=== PATIENT | female | born 1990 | race Caucasian/White ===

== ENCOUNTER → 2021-02-09 08:23 | Outpatient (CLI) | payer BC, SELFPAY ==
--- NOTE | ~2021-02-09 | XR_ITS ---
XR knee RT 3V 02/09/2021 08:40 INDICATION: Knee pain PROCEDURE: 3 views right knee COMPARISON: No prior studies for comparison. FINDINGS: Fracture, dislocation or subluxation is not identified. No significant joint effusion. The soft tissues appear within normal limits. No foreign bodies are identified. IMPRESSION: 1: NO ACUTE BONE OR JOINT ABNORMALITY IDENTIFIED. Reviewed, dictated and finalized at location A.
== END ==
PROVIDERS: PCP Internal Medicine; Visit Provider Internal Medicine
DX: M25.561 Pain in right knee (principal)
CPT/HCPCS: 73562

== ENCOUNTER → 2022-02-25 14:40 | Outpatient (CLI) | payer BC, SELFPAY ==
--- NOTE | ~2022-02-25 | MR_ITS ---
EXAMINATION: MR knee RT wo/w con DATE: 02/25/2022 15:28 INDICATION: Chronic worsening generalized right knee pain and swelling TECHNIQUE: Magnetic resonance imaging (MRI) of the right knee was performed without and with 14 mL Mu ltihance intravenous contrast. Sequences included coronal PD-weighted FSE, coronal PD-weighted FS FS E, sagittal T2-weighted FSE, sagittal PD-weighted FS FSE, axial PD weighted fat saturated FSE, axial T1-weighted fat-saturated FSE and postcontrast axial, sagittal and coronal T1-weighted FS FSE. COMPARISON: Right knee radiographs dated 02/09/2021 FINDINGS: Medial compartment: Medial meniscus is normal. Articular cartilage is normal. Lateral compartment: Lateral meniscus is normal. Articular cartilage is normal. Patellofemoral compartment: Articular cartilage is normal. Ligaments and tendons: Anterior and posterior cruciate ligaments are normal. The medial collateral ligament and fibular shania ateral ligament complex are normal. The extensor mechanism is normal. The visualized medial and later al hamstring tendons as well as the iliotibial band are normal. Fluid: Physiologic amount of fluid in the joint space. No loose osteochondral bodies identified. Osseous/other: Normal marrow signal. No fracture or pathologic marrow replacing process. No abnormally enhancing les ions identified. IMPRESSION: 1. Normal right knee MRI. No etiology identified for reported pain and swelling. Reviewed, dictated and finalized at location A. IMPRESSION: 1. Normal right knee MRI. No etiology identified for reported pain and swelling .
[2022-02-25 15:04] LABS: Estimated Glomerular Filt Rate > 60
== END ==
PROVIDERS: PCP Internal Medicine; Visit Provider Orthopaedic Surgery
DX: R22.40 Localized swelling, mass and lump, unspecified lower limb (principal); M25.561 Pain in right knee
CPT/HCPCS: 73723; A9577

== ENCOUNTER → 2023-10-17 15:37 | Outpatient (CLI) | payer OTHER, SELFPAY ==
--- NOTE | ~2023-10-17 | CT_ITS ---
EXAMINATION: CT sinus wo con DATE: 10/17/2023 15:51 INDICATION: Chronic sinusitis TECHNIQUE: Computed tomography (CT) of the paranasal sinuses was performed without intravenous contra st. The dose-length product (DLP) was 280.89 mGy-cm. Iterative reconstruction was used. COMPARISON: None FINDINGS: There is normal development and pneumatization of the paranasal sinuses. There is a 14 mm p olyp or mucous retention cyst in the inferomedial aspect of the left maxillary sinus. A 2 mm polyp or mucous retention cyst is noted medially in the right maxillary sinus. The frontal, sphenoid, and eth moid sinuses are clear. The bilateral ostiomeatal complexes are patent. Visualized soft tissues are u nremarkable. IMPRESSION: 1. Maxillary sinus disease as detailed above. Reviewed, dictated and finalized at location L. [facility]
== END ==
PROVIDERS: PCP Otolaryngology; Visit Provider Otolaryngology
DX: J32.9 Chronic sinusitis, unspecified (principal)
CPT/HCPCS: 70486

== ENCOUNTER 2024-12-13 08:09 | Outpatient (CLI) | payer OTHER, SELFPAY ==
--- NOTE | ~2024-12-13 | CT_ITS ---
EXAMINATION: CT sinus wo con DATE: 12/13/2024 08:27 INDICATION: Chronic sinusitis TECHNIQUE: Computed tomography (CT) of the paranasal sinuses was performed without intravenous contra st. The dose-length product was 420.49 mGy-cm. Automated exposure control and iterative reconstructio n technique were employed. COMPARISON: CT dated 10/17/2023 FINDINGS: There is a mucous retention cyst in the left maxillary sinus. Paranasal sinuses and mastoid s are pneumatized. Leftward nasal septal deviation. Ostiomeatal units are patent. Mastoids are pneuma tized. No significant mucosal thickening. No mucoperiosteal reaction. IMPRESSION: 1. Small mucous retention cyst left maxillary sinus. Reviewed, dictated and finalized at location []
== END 2024-12-13 08:10 | disposition home or self-care (01) ==
LOC: GOSHIMG 08:09
PROVIDERS: PCP Otolaryngology; Visit Provider Nurse Practitioner Family
DX: J32.0 Chronic maxillary sinusitis (principal)
CPT/HCPCS: 70486

== ENCOUNTER 2025-01-15 16:04 | Outpatient (CLI) | payer OTHER, SELFPAY ==
--- NOTE | ~2025-01-15 | US_ITS ---
Thyroid ultrasound. Clinical History: Nontoxic goiter Findings: Real-time sonography of the thyroid gland was performed. The right lobe measures 4.3 x 1.6 x 1.7 cm. The left lobe measures 4.7 x 1.3 x 1.4 cm. The isthmus is 2 mm in AP diameter. 3 mm hypoechoic, probably cystic nodule present in the left lower pole. Impression: 3 mm probable cystic left thyroid lobe nodule, of no clinical significance. Reviewed, dictated and finalized at [facility]. Impression: 3 mm probable cystic left thyroid lobe nodule, of no clinical significance.
== END 2025-01-15 16:05 | disposition home or self-care (01) ==
PROVIDERS: PCP Otolaryngology; Visit Provider Internal Medicine
DX: E04.9 Nontoxic goiter, unspecified (principal)
CPT/HCPCS: 76536